=== PATIENT | female | born 1965 | race American Indian/Alaskan Native ===

== ENCOUNTER 2021-10-31 10:36 | Emergency (ER) | payer SELFPAY ==
[2021-10-31] MEDS ORDERED: ACETAMINOPHEN 500 MG TAB PO STA (12:48)
[2021-10-31] MEDS ORDERED: IBUPROFEN 800 MG TAB PO STA (12:48)
--- NOTE | 2021-10-31 12:55 | Emergency Department Report ---
ED General Adult HPI - General Chief complaint: Extremity Injury, Lower Stated complaint: FEET PAIN Time Seen by Provider: 10/31/21 12:40 Source: patient Mode of arrival: Ambulatory Limitations: No Limitations - History of Present Illness Initial comments: 55-year-old -[place] female patient presents with complaints of bilateral foot pain x2-1/2 years. Patient states over the past week, her foot pain has worsened since she began a job with [employer] and has to do a great deal of walking and standing. She states she has some leftover hydrocodone that helps with her pain. She has not tried any other OTC medications for symptoms. The pain is on the top of the foot and she rates it as 8/10 in severity. No other past medical history per patient. She has not seen a special needs bus driver for this complaint per patient - Related Data Previous Rx's Medication Instructions Recorded Last Taken Type Diclofenac 1% [Diclofenac 1% 1 gram TP QID PRN #1 tube 10/31/21 Unknown Rx topical gel] Meloxicam [Mobic] 15 mg PO TID PRN #30 tab 10/31/21 Unknown Rx Allergies Allergy/AdvReac Type Severity Reaction Status Date / Time No Known Allergies Allergy Unverified 10/31/21 10:55 ED Review of Systems ROS: Stated complaint: FEET PAIN Other details as noted in HPI Musculoskeletal: arthralgia. denies: joint swelling Skin: denies: rash, lesions, change in color Neurological: denies: numbness, paresthesias ED Past Medical Hx - Past Medical History Previous Medical History?: No - Surgical History Additional Surgical History: COLON - Medications Home Medications: Home Medications Medication Instructions Recorded Confirmed Last Taken Type Diclofenac 1% [Diclofenac 1% 1 gram TP QID PRN #1 tube 10/31/21 Unknown Rx topical gel] Meloxicam [Mobic] 15 mg PO TID PRN #30 tab 10/31/21 Unknown Rx ED Physical Exam - General Limitations: No Limitations General appearance: alert, in no apparent distress, obese - Head Head exam: Present: atraumatic, normocephalic - Eye Eye exam: Present: normal appearance - Respiratory Respiratory exam: Absent: respiratory distress - Cardiovascular Cardiovascular Exam: Present: regular rate - Back Exam Back exam: Present: other (Mild tenderness to palpation noted to the top bilateral feet across the proximal and mid metatarsals without swelling, obvious deformities, or skin changes noted; pedal pulses are normal bilaterally; normal range of motion and sensation of feet noted) - Neurological Exam Neurological exam: Present: alert, oriented X3 - Psychiatric Psychiatric exam: Present: normal affect, normal mood - Skin Skin exam: Present: warm, dry, intact, normal color. Absent: rash ED Course Vital Signs 10/31/21 11:00 Temperature 98.7 F Pulse Rate 89 Respiratory 20 Rate Blood Pressure 169/92 O2 Sat by Pulse 97 Oximetry ED Medical Decision Making - Medical Decision Making 55-year-old -[place] female patient presents with complaints of bilateral foot pain x2-1/2 years. Patient states over the past week, her foot pain has worsened since she began a job with [employer] and has to do a great deal of walking and standing. She states she has some leftover hydrocodone that helps with her pain. She has not tried any other OTC medications for symptoms. The pain is on the top of the foot and she rates it as 8/10 in severity. No other past medical history per patient. She has not seen a special needs bus driver for this complaint per patient No acute abnormalities noted on exam. Given chronicity of pain, recommend patient follows up with podiatry for further evaluation and treatment. We will treat for now with anti-inflammatories. She is well-appearing and stable for discharge home. Discussed elevated blood pressure and need for follow-up with primary care for further evaluation. Patient states blood pressure last checked in May and was normal. No neurologic symptoms today per patient. Discussed in detail signs and symptoms that should prompt immediate return to emergency department with patient who verbalizes understanding Critical care attestation.: If time is entered above; I have spent that time in minutes in the direct care of this critically ill patient, excluding procedure time. ED Disposition Clinical Impression: Chronic pain of both feet, Elevated blood pressure reading in office without diagnosis of hypertension Disposition: HOME / SELF CARE / HOMELESS Is pt being admited?: No Condition: Stable Instructions: Foot Pain, Hypertension, Adult, [id number] Prescriptions: Diclofenac 1% [Diclofenac 1% topical gel] 1 gram TP QID PRN #1 tube PRN Reason: pain Meloxicam [Mobic] 15 mg PO TID PRN #30 tab PRN Reason: pain Referrals: JASON WANG DPM [Staff Physician] - 3-5 Days [facility] [Provider Group] - 2-3 Days (blood pressure ) Forms: Work/School Release Form(ED)
[2021-10-31 13:23] VITALS: BP 165/103
== END 2021-10-31 13:26 | disposition home or self-care (01) ==
LOC: ED 10:36
DX: M79.672 Pain in left foot (principal); M79.671 Pain in right foot; R03.0 Elevated blood-pressure reading, without diagnosis of hypertension
CPT/HCPCS: 99282